=== PATIENT | female | born 1950 | race Caucasian/White ===

== ENCOUNTER 2016-11-05 07:18 | Emergency (ER) | payer OTHER ==
[~2016-11-05] VITALS: Ht 160 cm; Wt 63.0 kg
[~2016-11-05 07:18] MED LIST: BACL10TA PO
[2016-11-05 07:40] VITALS: Ht 160 cm; Wt 63.0 kg
[2016-11-05 08:13] LABS: BASOPHILS % 0.4 % (0.0-2.0); EOSINOPHILS # 0.5 10^3/ul (0.0-0.5); EOSINOPHILS % 4.9 % (0.0-7.0); HEMATOCRIT 40.5 % (37.0-47.0); HEMOGLOBIN 13.6 g/dl (12.0-16.0); LYMPHOCYTES # 1.9 10^3/ul (0.8-2.9); LYMPHOCYTES % 19.5 % (15.0-51.0); MEAN CORPUSCULAR HEMOGLOBIN 31.4 pg (29.0-33.0); MEAN CORPUSCULAR HGB CONC 33.6 g/dl (32.0-37.0); MEAN CORPUSCULAR VOLUME 93.5 fl (82.0-101.0); MEAN PLATELET VOLUME 9.2 fl (7.4-10.4); MONOCYTE # 0.7 10^3/ul (0.3-0.9); MONOCYTES % 7.1 % (0.0-11.0); NEUTROPHILS % 67.8 % (39.0-77.0); PLATELET COUNT 251 10^3/UL (140-415); RED BLOOD COUNT 4.33 10^6/ul (4.20-5.40); RED CELL DISTRIBUTION WIDTH 12.5 % (11.5-14.5); WHITE BLOOD COUNT 9.5 10^3/ul (4.8-10.8)
--- NOTE | 2016-11-05 08:18 | RADRPT ---
PROCEDURE: Chest Radiograph. CLINICAL INDICATION: Chest pain. Dizziness. TECHNIQUE: Single frontal chest radiograph. COMPARISON: None available FINDINGS: The cardiomediastinal silhouette is within normal limits. No infiltrate or effusion is seen. Th e bones are intact. IMPRESSION: 1. Unremarkable chest radiograph. RPTAT: [facility] .Salomón Tejada MD, MD Date Time Electronically viewed and signed by .Salomón Tejada MD, on 11/05/2016 08:17 .B/
[2016-11-05 08:19] LABS: ADD UMIC NO; UR ASCORBIC ACID 40 mg/dL (NEGATIVE); UR BILIRUBIN (Dip) NEGATIVE (NEGATIVE); UR BLOOD (Dip) NEGATIVE (NEGATIVE); UR CLARITY CLEAR (CLEAR); UR COLOR STRAW (YELLOW); UR GLUCOSE (Dip) NEGATIVE (NEGATIVE); UR KETONES (Dip) NEGATIVE (NEGATIVE); UR LEUKOCYTE ESTERASE (Dip) NEGATIVE Leu/ul (NEGATIVE); UR NITRITE (Dip) NEGATIVE (NEGATIVE); UR SPECIFIC GRAVITY (Dip) 1.003 (1.003-1.030); UR TOTAL PROTEIN (Dip) NEGATIVE (NEGATIVE); UR UROBILINOGEN (Dip) NEGATIVE (NEGATIVE)
[2016-11-05 08:54] LABS: TROPONIN-I < 0.012 ng/ml (0.00-0.12)
[2016-11-05 09:06] LABS: ANION GAP 14 (8-16); BLOOD UREA NITROGEN 15 mg/dl (7-20); CALCIUM 9.2 mg/dl (8.4-10.2); CARBON DIOXIDE 26 mmol/L (21-31); CHLORIDE 101 mmol/L (97-110); CREATININE 0.73 mg/dl (0.44-1.00); GLUCOSE 89 mg/dl (70-220); POTASSIUM 3.6 mmol/L (3.5-5.1); SODIUM 137 mmol/L (135-144)
[2016-11-05] MEDS ORDERED: SOD CHLORIDE 0.9% 500 ML IV STA (09:33)
--- NOTE | 2016-11-05 09:41 | ERD ---
ER Documentation Chief Complaint Date/Time DATE: 11/05/16 TIME: 09:37 Chief Complaint dizziness syncopal episode x 2 last night with sweating HPI This is a 66-year-old female presents to the emergency room for evaluation of dizziness. The patient states that she woke up last night and was feeling dizzy and stated the room was spinning. She states this occurred after she woke up and sat up in bed. She had no syncopal episode. She did feel mildly nauseous and she came to the ER for evaluation today. She denies any active dizziness at this time however she was concerned because she was dizzy and lightheaded last night. ROS All systems reviewed and are negative except as per history of present illness. Medications Home Meds Discontinued Reported Medications Baclofen* (Baclofen*) 10 Mg Tablet, 10 MG PO DAILY 04/19/12 Allergies Allergies: Coded Allergies: acetaminophen (Verified Allergy, Mild, NAUSEA AND VOMITING, 11/05/16) hydrocodone bit (Verified Allergy, Mild, NAUSEA AND VOMITING, 11/05/16) PMhx/Soc History of Surgery: Yes (R shoulder Sx) Anesthesia Reaction: No Hx Neurological Disorder: No Hx Respiratory Disorders: No Hx Cardiac Disorders: No Hx Psychiatric Problems: No Hx Miscellaneous Medical Probl: No Hx Alcohol Use: No Hx Substance Use: No Hx Tobacco Use: No Smoking Status: Never smoker Physical Exam Vitals Vital Signs Date Time Temp Pulse Resp B/P Pulse Ox O2 Delivery O2 Flow Rate FiO2 11/05/16 08:04 98.1 79 20 138/68 99 Room Air 11/05/16 07:40 98.1 -17.7792 18 176/80 99 11/05/16 07:20 98.1 76 18 176/80 99 Physical Exam INITIAL VITAL SIGNS: Reviewed by me GENERAL: The patient is well developed and appropriate for usual state of health in no apparent distress HEENT: Pupils equal, round, and reactive to light. EOMI. There is no scleral icterus. NECK: C-spine is soft and supple, there is no meningismus. There is no cervical lymphadenopathy. LUNGS: Clear to auscultation bilaterally. There are no rales, wheezes or rhonchi. HEART: Regular rate and rhythm, no murmurs, clicks, rubs or gallops. ABDOMEN: Soft, non-tender, non-distended. There are bowel sounds in all four quadrants. No rebound or guarding. EXTREMITIES: There is no peripheral cyanosis or edema. No focal swelling or erythema. NEUROLOGICAL: Nonsustainable horizontal nystagmus to the right, the patient moves all four extremities with 5/5 strength. Cranial nerves II - XII are intact. Normal gait. Alert and oriented SKIN: There is no apparent rash or petechiae. HEME/LYMPHATIC: There is no evidence of excessive bruising or lymphedema. PSYCHIATRIC: The patient does not appear anxious or depressed. Result Diagram: 11/05/16 0745 11/05/16 0745 Results 24 hrs Laboratory Tests Test 11/05/16 07:45 11/05/16 07:55 White Blood Count 9.510^3/ul Red Blood Count 4.3310^6/ul Hemoglobin 13.6g/dl Hematocrit 40.5% Mean Corpuscular Volume 93.5fl Mean Corpuscular Hemoglobin 31.4pg Mean Corpuscular Hemoglobin Concent 33.6g/dl Red Cell Distribution Width 12.5% Platelet Count 97078^3/UL Mean Platelet Volume 9.2fl Neutrophils % 67.8% Lymphocytes % 19.5% Monocytes % 7.1% Eosinophils % 4.9% Basophils % 0.4% Nucleated Red Blood Cells % 0.0/100WBC Neutrophils # (Manual) 610^3/ul Lymphocytes # 1.910^3/ul Monocytes # 0.710^3/ul Eosinophils # 0.510^3/ul Basophils # 0.010^3/ul Nucleated Red Blood Cells # 0.010^3/ul Sodium Level 137mmol/L Potassium Level 3.6mmol/L Chloride Level 101mmol/L Carbon Dioxide Level 26mmol/L Anion Gap 14 Blood Urea Nitrogen 15mg/dl Creatinine 0.73mg/dl Glucose Level 89mg/dl Calcium Level 9.2mg/dl Troponin I < 0.012ng/ml Urine Color STRAW Urine Clarity CLEAR Urine pH 8.0 Urine Specific [facility] 1.003 Urine Ketones NEGATIVEmg/dL Urine Nitrite NEGATIVEmg/dL Urine Bilirubin NEGATIVEmg/dL Urine Urobilinogen NEGATIVEmg/dL Urine Leukocyte Esterase NEGATIVELeu/ul Urine Hemoglobin NEGATIVEmg/dL Urine Glucose NEGATIVEmg/dL Urine Total Protein NEGATIVEmg/dl Current Medications Medications (Trade) Dose Ordered Sig/Liyah Route PRN Reason Start Time Stop Time Status Last Admin Dose Admin Meclizine HCl 25 mg 25 mg ONCE ONCE PO 11/05/16 10:00 11/05/16 10:01 Sodium Chloride (NS) 500 ml @ 500 mls/hr Q1H STAT IV 11/05/16 09:33 11/05/16 10:32 UNV Procedures/MDM EKG: Rate/Rhythm: [Normal Sinus Rhythm] QRS, ST, T-waves: [No changes consistent w/ acute ischemia] Impression: [No evidence of ischemia or arrhythmia] Chest X-ray 1V Interpreted by me: Soft Tissue: No acute abnormalities Bones: No acute abnormalities Mediastinum/Cardiac Silhouette/Lungs: [No acute abnormalities] This 66-year-old female presents to the ER for evaluation of dizziness. When I evaluated this patient she had no active dizziness however she did have an unstable nystagmus. The patient underwent a cardiac workup including EKG which is nonischemic. Troponin which is negative. Chest x-ray which is clear. Lab work is within normal limits and she has no signs of urinary tract infection. I feel that this patient's dizziness could be due to BPPV. The patient was given meclizine in the ER will be discharged home with a prescription for meclizine. She was advised that if she were to have any more dizziness or any signs of chest pain or shortness of breath she needs to return immediately to the ER for reevaluation and admission. The patient verbalizes understanding. The patient and the patient's and feel comfortable with her disposition at this time for discharge Departure Diagnosis: Primary Impression: BPPV (benign paroxysmal positional vertigo) Condition: Stable ELLEN GONZALEZ DO Nov 05, 2016 09:40
[2016-11-05] MEDS ORDERED: MECL12.574 PO (09:43)
[2016-11-05] MEDS ORDERED: MECLIZINE 12.5 MG TAB PO ONE (10:00)
[2016-11-05 10:39] VITALS: BP 133/70; PULSE 84; RESP 16; TEMP 98.1
== END 2016-11-05 10:42 | disposition home or self-care (01) ==
LOC: E/R 07:18
DX: H81.10 Benign paroxysmal vertigo, unspecified ear (principal); R40.2252 Coma scale, best verbal response, oriented, at arrival to emergency department; R40.2142 Coma scale, eyes open, spontaneous, at arrival to emergency department; R40.2362 Coma scale, best motor response, obeys commands, at arrival to emergency department
CPT/HCPCS: 71010; 80048; 81003; 84484; 85025; 93005; J7040; Z7610; 36415; 96360

== ENCOUNTER 2017-07-16 01:08 | Observation (INO) | END 2017-07-17 12:48 | disposition home or self-care (01) ==